=== PATIENT | female | born 1990 | race Caucasian/White ===

== ENCOUNTER 2018-05-28 08:27 | Inpatient (IN) | payer OTHER ==
[2018-05-28] MEDS ORDERED: Sodium Chloride 0.9% 10 ML Syringe FLUSH PRN (08:34)
[2018-05-28] MEDS ORDERED: Sodium Chloride 0.9% 2.5 ML Syringe FLUSH PRN (08:34)
[2018-05-28] MEDS ORDERED: Oxytocin/0.9 % Sodium Chloride 30 UNIT/500 ML BAG IV SCH (08:45)
[2018-05-28] MEDS ORDERED: Citric Acid/Sodium Citrate Solution 30 ML Cup PO SCH (08:45)
[2018-05-28] MEDS: Lactated Ringers 1,000 ML IV SCH ×2 (09:00→09:54)
--- NOTE | 2018-05-28 09:41 | PCM.PREANE ---
Preanesthetic Assessment - Anesthesia/Transfusion/Family Hx Anesthesia History: No Prior Anesthesia Family History of Anesthesia Reaction: No Transfusion History: No Prior Transfusion(s) - Review of Systems General: No Symptoms, Other (Pt fina q 3-5 min, but feeling no pain - baby breech) Pulmonary: No Symptoms Cardiovascular: No Symptoms Gastrointestinal: Diarrhea Neurological: No Symptoms Other: Reports: None - Physical Assessment NPO Status Date: 05/28/18 NPO Status Time: 00:00 Pulse: 83 Blood Pressure: 115/78 Height: 5 ft 6 in Weight: 193 lb ASA Class: 1 Mental Status: Alert & Oriented x3 Airway Class: Mallampati = 2 Dentition: Reports: Normal Dentition Thyro-Mental Finger Breadths: 3 Mouth Opening Finger Breadths: 3 ROM/Head Extension: Full Lungs: Clear to Auscultation, Normal Respiratory Effort Cardiovascular: Regular Rate, Regular Rhythm - Lab Values: Laboratory Last Values WBC 8.93 K/uL (4.0-11.0) 05/28/18 08:55 RBC 4.12 M/uL (4.30-5.90) L 05/28/18 08:55 Hgb 12.7 g/dL (12.0-16.0) 05/28/18 08:55 Hct 37.3 % (36.0-46.0) 05/28/18 08:55 MCV 90.5 fL (80.0-98.0) 05/28/18 08:55 MCH 30.8 pg (27.0-32.0) 05/28/18 08:55 MCHC 34.0 g/dL (31.0-37.0) 05/28/18 08:55 RDW Std Deviation 46.9 fl (28.0-62.0) 05/28/18 08:55 RDW Coeff of Alexandre 14 % (11.0-15.0) 05/28/18 08:55 Plt Count 134 K/uL (150-400) L 05/28/18 08:55 MPV 10.40 fL (7.40-12.00) 05/28/18 08:55 Nucleated RBC % 0.0 /100WBC 05/28/18 08:55 Nucleated RBCs # 0 K/uL 05/28/18 08:55 - Allergies Allergies/Adverse Reactions: Allergies Allergy/AdvReac Type Severity Reaction Status Date / Time No Known Allergies Allergy Verified 05/21/18 15:11 - Blood Blood Available: No Product(s) Available: None - Anesthesia Plan Free Text/Narrative:: SAB - Acknowledgements Anesthesia Type Planned: Spinal Pt an Appropriate Candidate for the Planned Anesthesia: Yes Alternatives and Risks of Anesthesia Discussed w Pt/Guardian: Yes Pt/Guardian Understands and Agrees with Anesthesia Plan: Yes PreAnesthesia Questionnaire HEENT History: Reports: Other (See Below) Other HEENT History: wears glasses/contacts [employer] REPA[employer]ER History: Reports: Endocrine/Metabolic History: Reports: Obesity/BMI 30+ - SUBSTANCE USE Smoking Status *Q: Never Smoker Recreational Drug Use History: No - HOME MEDS Home Medications: Home Meds Vit W-Ca,Fe,FA(<1 mg) [ Vitamins] 1 tab PO DAILY 05/21/18 [ History] - CURRENT (IN HOUSE) MEDS Current Meds: Current Medications Citric Acid/Sodium Citrate (Bicitra Solution) 30 ml PO .ONCE YIMI Cefazolin Sodium/Dextrose 2 gm (/ Premix) 50 mls @ 100 mls/hr IV ONETIME ONE Stop: 05/28/18 10:59 Lactated Ringer's (Ringers, Lactated) 1,000 mls @ 500 mls/hr IV .BOLUS YIMI Last Admin: 05/28/18 09:00 Dose: 500 mls/hr Oxytocin/Sodium Chloride (Oxytocin 30 Unit/500 Ml-Ns) 30 unit in 500 mls @ 250 mls/hr IV TITRATE YIMI Sodium Chloride (Saline Flush) 10 ml FLUSH ASDIRECTED PRN PRN Reason: Keep Vein Open Sodium Chloride (Saline Flush) 2.5 ml FLUSH ASDIRECTED PRN PRN Reason: Keep Vein Open
[2018-05-28] MEDS ORDERED: ceFAZolin 2 GM in Premix Bag 1 BAG IV ONE (10:30)
[2018-05-28] MEDS ORDERED: Morphine PF 1 MG/ML Amp ONE (10:41)
[2018-05-28] MEDS ORDERED: Ondansetron 4 MG/2 ML SDV ONE (10:41)
[2018-05-28] MEDS ORDERED: ceFAZolin 1 GM Vial ONE (10:41)
[2018-05-28] MEDS ORDERED: ePHEDrine 50 MG/ML SDV ONE (10:43)
[2018-05-28] MEDS ORDERED: Oxytocin/0.9 % Sodium Chloride 30 UNIT/500 ML BAG ONE (11:00)
[2018-05-28] MEDS ORDERED: Phenylephrine/Normal Saline 100 MCG/ML 10 ML Syringe ONE (11:40)
[2018-05-28] MEDS ORDERED: Ondansetron 4 MG/2 ML SDV IV PRN (12:53)
[2018-05-28] MEDS ORDERED: Bisacodyl 10 MG Supp RECTAL PRN (12:53)
[2018-05-28] MEDS ORDERED: Acetaminophen/oxyCODONE 325-5 MG Tab PO PRN ×2 (12:53→12:55)
[2018-05-28] MEDS ORDERED: diphenhydrAMINE 50 MG/ML SDV IVPUSH PRN ×2 (12:53→12:56)
[2018-05-28] MEDS ORDERED: Lanolin 100% Cream 7 GM Tube TOP PRN (12:53)
[2018-05-28] MEDS ORDERED: Naloxone 0.4 MG/ML Syringe IVPUSH PRN (12:56)
[2018-05-28] MEDS ORDERED: Nalbuphine 10 MG/ML 10 ML MDV IVPUSH PRN (12:56)
--- NOTE | 2018-05-28 12:59 | PCM.OPNOTE ---
- General Post-Op/Procedure Note Date of Surgery/Procedure: 05/28/18 Operative Procedure(s): Primary section Findings: Male infant in florentino breech presentation. Wt 3720grams, Apgars 9 and 9. Normal uterus, tubes and ovaries. Pre Op Diagnosis: IUP at 39 weeks. Malpresentation, Breech Post-Op Diagnosis: Same Anesthesia Technique: Spinal Primary Surgeon: Li Granados Fluid Replacement, Intraop: 2,000 Output, Urine Amount: 280 EBL in mLs: 700 Complications: None Condition: Good
[2018-05-28] MEDS ORDERED: Lactated Ringers 1,000 ML IV SCH (13:00)
[2018-05-28] MEDS: Ketorolac 30 MG/ML SDV IVPUSH SCH ×2 (13:08→18:33)
[2018-05-28] MEDS: Docusate Sodium 100 MG Cap PO SCH (21:27)
--- NOTE | 2018-05-28 23:22 | PCM48HPAN ---
Post Anesthesia Note - EVALUATION WITHIN 48HRS OF ANESTHETIC Vital Signs in Normal Range: Yes Patient Participated in Evaluation: Yes Respiratory Function Stable: Yes Airway Patent: Yes Cardiovascular Function Stable: Yes Hydration Status Stable: Yes Pain Control Satisfactory: Yes Nausea and Vomiting Control Satisfactory: Yes Mental Status Recovered: Yes Pulse Rate: 83 Resp Rate: 17 Blood Pressure: 115/78 - COMMENTS/OBSERVATIONS Free Text/Narrative:: Pt has been up walking earlier this evening. No apparent anesthesia complications.
[2018-05-29] MEDS: Ketorolac 30 MG/ML SDV IVPUSH SCH ×3 (00:47→12:37)
--- NOTE | 2018-05-29 08:18 | OR ---
SURGEON: Li Granados MD DATE OF PROCEDURE: 05/28/2018 PREOPERATIVE DIAGNOSES: 1. Term at 39 weeks gestation. 2. Breech presentation. POSTOPERATIVE DIAGNOSES: 1. Term at 39 weeks gestation. 2. Breech presentation. 3. Delivered. PROCEDURE: Primary low-transverse section via Pfannenstiel. ANESTHESIA: Spinal. ESTIMATED BLOOD LOSS: 700 mL. IV FLUIDS: 2000 mL of crystalloid. URINE OUTPUT: 280mls, clear at the end of the procedure. COMPLICATIONS: None. INDICATION: This 27-year-old primigravida at 39 weeks gestation, breech presentation at term. Unable to perform external cephalic version due to low amniotic fluid. care was otherwise uncomplicated. FINDINGS: Male in florentino breech presentation, scores 9 and 9 at 1 and 5 minutes respectively. Weight 3720 g. Clear scanty amount of amniotic fluid. Normal-appearing uterus, tubes, and ovaries. Grossly normal placenta with 3- vessel cord. PROCEDURE IN DETAIL: Patient was taken to the operating room where spinal was performed and was found to be adequate. She was then prepped and draped in normal sterile fashion in the dorsal supine position with a leftward tilt. SCDs were in place. 2 g of Ancef was given. Appropriate time-out was performed. A Pfannenstiel skin incision was then made with a scalpel and carried to the underlying fascia. The fascia was incised in the midline and the incision was extended laterally with the Bovie. Superior aspect of the fascial incision was then grasped with Mitesh clamps, elevated, and the underlying rectus muscles were dissected off with the Bovie. Attention was then turned to the inferior aspect of the incision, which in a similar fashion was tented up with Mitesh clamps and the underlying rectus muscle dissected off with the Bovie. The rectus muscle was then in the midline and the parietal peritoneum was identified and entered bluntly. This peritoneal defect was then extended laterally by stretching. The bladder blade was then inserted and the vesicouterine peritoneum was identified, grasped with pickups, and entered sharply with the Metzenbaum scissors. The incision was extended laterally and a bladder flap was created digitally. The bladder blade was then reinserted and the lower uterine segment was incised in a transverse fashion with the scalpel. The incision was extended upwards and downwards bluntly. The bladder blade was removed and the infant's buttocks was lifted out of the pelvis atraumatically and then the feet were then delivered followed by the rest of the baby using routine breech extraction maneuvers. The baby was vigorous and cried spontaneously at . The oropharynx and nostrils were bulb suctioned on the abdomen and the cord was double clamped and the infant was handed off to the waiting the nursery team. Cord blood and gas samples were obtained. The placenta was then removed manually. The uterus was exteriorized and cleared of all clots and debris. The hysterotomy site was repaired in 2 layers using 0 Vicryl suture. First layer was repaired in a running locked fashion and a 2nd imbricating layer was performed to obtain excellent hemostasis. Copious amount of irrigation was performed. The uterus was then returned into the abdominal cavity. The gutters were cleared of all clots and debris. The hysterotomy site was reexamined and found to have excellent hemostasis. The edges of the parietal peritoneum were then identified and this layer was closed with 2-0 Vicryl suture in a running fashion. The rectus muscle was reapproximated with the same suture using mattress stitches. The subfascial tissue was examined and found to be hemostatic. The fascia was reapproximated with 0 Vicryl in a running fashion. The subcutaneous tissue was then irrigated and made hemostatic with electrocautery. The skin was closed with subcuticular stitches using 4-0 Monocryl suture. The patient tolerated the procedure well. Sponge, lap, and needle counts were correct at the end of the procedure. The patient was taken to the recovery room in a stable condition and baby to the nursery in stable condition. JOI / UMU /[id number] SEBAS
--- NOTE | 2018-05-29 09:30 | PCM.PNPP ---
- General Info Date of Service: 05/29/18 Functional Status: Reports: Pain Controlled, Tolerating Diet, Ambulating, Urinating - Review of Systems General: Denies: Fever, Fatigue, Chills HEENT: Denies: Headaches Pulmonary: Denies: Shortness of Breath, Pleuritic Chest Pain Cardiovascular: Denies: Chest Pain, Palpitations, Dyspnea on Exertion Gastrointestinal: Denies: Abdominal Pain Genitourinary: Denies: Incontinence, Flank Pain - General Info Date of Service: 05/29/18 - Patient Data Vital Signs - Most Recent: Last Vital Signs Temp 36.2 C 05/29/18 04:00 Pulse 89 05/29/18 07:00 Resp 17 05/29/18 07:00 BP 116/71 05/29/18 04:00 Pulse Ox 98 05/29/18 07:00 Weight - Most Recent: 193 lb I&O - Last 24 Hours: Intake & Output 05/28/18 05/29/18 05/29/18 22:59 06:59 14:59 Output Total 1100 2200 Balance -1100 -2200 Lab Results - Last 24 Hours: Laboratory Results - last 24 hr 05/28/18 05/28/18 05/29/18 Range/Units 08:55 12:01 05:11 Hgb 10.0 L (12.0-16.0) g/dL Hct 29.9 L (36.0-46.0) % Cord ABG pH 7.292 (7.18-7.38) Cord ABG Base Excess -1 H (-10--2) Cord VBG pH 7.445 (7.25-7.45) Cord VBG Base Excess -2 (-10--2) Blood Type AB POSITIVE Antibody Screen NEGATIVE Med Orders - Current: Current Medications Bisacodyl (Dulcolax) 10 mg RECTAL .ONCE PRN PRN Reason: Constipation Diphenhydramine HCl (Benadryl) 25 mg IVPUSH Q6H PRN PRN Reason: Itching or Nausea Diphenhydramine HCl (Benadryl) 25 mg IVPUSH Q4H PRN PRN Reason: pruritis Stop: 05/29/18 12:56 Docusate Sodium (Colace) 100 mg PO BID YIMI Last Admin: 05/28/18 21:27 Dose: 100 mg Emollient Ointment (Lansinoh Hpa) 0 gm TOP ASDIRECTED PRN PRN Reason: Sore Nipples Lactated Ringer's (Ringers, Lactated) 1,000 mls @ 125 mls/hr IV ASDIRECTED YIMI Last Admin: 05/28/18 15:24 Dose: 125 mls/hr Ibuprofen (Motrin) 800 mg PO Q8H PRN PRN Reason: mild pain or fever Ketorolac Tromethamine (Toradol) 30 mg IVPUSH Q6H YIMI Stop: 05/29/18 13:01 Last Admin: 05/29/18 06:45 Dose: 30 mg Nalbuphine HCl (Nubain) 2.5 mg IVPUSH Q3H PRN PRN Reason: Pruritis Stop: 05/29/18 12:56 Naloxone HCl (Narcan) 0.1 mg IVPUSH ONETIME PRN PRN Reason: RR<6 WITH STIMULATION Stop: 05/29/18 12:57 Ondansetron HCl (Zofran) 4 mg IV Q4H PRN PRN Reason: Nausea/Vomiting Oxycodone/Acetaminophen (Percocet 325-5 Mg) 1 tab PO Q4H PRN PRN Reason: Pain (moderate 4-6) Oxycodone/Acetaminophen (Percocet 325-5 Mg) 2 tab PO Q4H PRN PRN Reason: Pain (moderate 4-6) Oxycodone/Acetaminophen (Percocet 325-5 Mg) 1 tab PO .Q4HRS PRN PRN Reason: Breakthrough Pain Stop: 05/29/18 12:55 Discontinued Medications Cefazolin Sodium (Ancef) Confirm Administered Dose 1 gm .ROUTE .STK-MED ONE Stop: 05/28/18 10:42 Citric Acid/Sodium Citrate (Bicitra Solution) 30 ml PO .ONCE YIMI Last Admin: 05/28/18 11:13 Dose: 30 ml Ephedrine Sulfate (Ephedrine Sulfate) Confirm Administered Dose 50 mg .ROUTE .STK-MED ONE Stop: 05/28/18 10:44 Cefazolin Sodium/Dextrose 2 gm (/ Premix) 50 mls @ 100 mls/hr IV ONETIME ONE Stop: 05/28/18 10:59 Last Admin: 05/28/18 23:11 Dose: Not Given Lactated Ringer's (Ringers, Lactated) 1,000 mls @ 500 mls/hr IV .BOLUS YIMI Last Admin: 05/28/18 09:54 Dose: 150 mls/hr Oxytocin/Sodium Chloride (Oxytocin 30 Unit/500 Ml-Ns) 30 unit in 500 mls @ 250 mls/hr IV TITRATE YIMI Cefazolin Sodium/Dextrose (Ancef) Confirm Administered Dose 50 mls @ as directed .ROUTE .STK-MED ONE Stop: 05/28/18 10:41 Oxytocin/Sodium Chloride (Oxytocin 30 Unit/500 Ml-Ns) Confirm Administered Dose 30 unit in 500 mls @ as directed .ROUTE .STK-MED ONE Stop: 05/28/18 11:01 Last Admin: 05/28/18 23:11 Dose: Not Given Acetaminophen (Ofirmev) Confirm Administered Dose 100 mls @ as directed IV .STK- MED ONE Stop: 05/28/18 12:24 Morphine Sulfate (Duramorph Pf) Confirm Administered Dose 1 mg .ROUTE .STK-MED ONE Stop: 05/28/18 10:42 Ondansetron HCl (Zofran) Confirm Administered Dose 4 mg .ROUTE .STK-MED ONE Stop: 05/28/18 10:42 Phenylephrine HCl (Phenylephrine In Ns 100 Mcg/Ml) Confirm Administered Dose 1 mg .ROUTE .STK-MED ONE Stop: 05/28/18 11:41 Sodium Chloride (Saline Flush) 10 ml FLUSH ASDIRECTED PRN PRN Reason: Keep Vein Open Sodium Chloride (Saline Flush) 2.5 ml FLUSH ASDIRECTED PRN PRN Reason: Keep Vein Open - Interaction Disposition, : in Room with Family Feeding: Breastfed Infant; Nursed Well, Continues to Breastfeed Support Person: - Recovery Exam Fundal Tone: Firm Fundal Level: 2 Fingerbreadths Below Umbilicus Fundal Placement: Midline Lochia Amount: Scant Lochia Color: Rubra/Red Perineum Description: Intact, Minimal Bruising/Swelling Episiotomy/Laceration: Approximated Bladder Status: Voiding Urinary Elimination: Voided - Exam General: Alert, Oriented Lungs: Clear to Auscultation, Normal Respiratory Effort Cardiovascular: Regular Rate, Regular Rhythm Extremities: Non-Tender, Pedal Edema Wound/Incisions: Healing Well Psy/Mental Status: Alert, Normal Affect, Normal Mood - Problem List & Annotations (1) delivery indicated due to breech presentation SNOMED Code(s): 330804105, 576209712 Code(s): O32.1XX0 - MATERNAL CARE FOR BREECH PRESENTATION, UNSP Status: Acute Current Visit: Yes - Problem List Review Problem List Initiated/Reviewed/Updated: Yes - My Orders Last 24 Hours: My Active Orders 05/28/18 08:34 Procedure Site Prep Instruct [RC] ASDIRECTED Up ad Dottie [RC] ASDIRECTED Verify Patient Consent Obtain [RC] ASDIRECTED Vital Signs [RC] PER UNIT ROUTINE 05/28/18 08:36 Notify Provider Vital Signs [RC] PRN 05/28/18 12:53 Patient Status [ADT] Routine Ambulate [RC] PER UNIT ROUTINE Communication Order [RC] PER UNIT ROUTINE May Shower [RC] ASDIRECTED RT Incentive Spirometry [RC] Q2HWA Acetaminophen/oxyCODONE [Percocet 325-5 MG] 1 tab PO Q4H PRN Acetaminophen/oxyCODONE [Percocet 325-5 MG] 2 tab PO Q4H PRN Bisacodyl [Dulcolax] 10 mg RECTAL .ONCE PRN Ibuprofen [Motrin] 800 mg PO Q8H PRN Lanolin [Lansinoh HPA] See Dose Instructions TOP ASDIRECTED PRN Ondansetron [Zofran] 4 mg IV Q4H PRN diphenhydrAMINE [Benadryl] 25 mg IVPUSH Q6H PRN Abdominal Binder [OM.PC] Routine Assess Lochia [WOMSER] Per Unit Routine Assess Uterine Involution [WOMSER] Per Unit Routine Breast Pump [WOMSER] Per Unit Routine Peripheral IV Discontinue [OM.PC] Routine Sequential Compression Device [OM.PC] Per Unit Routine Resuscitation Status Routine 05/28/18 12:54 Intake and Output [RC] Q4H Notify Provider Intake and Out [RC] ASDIRECTED Notify Provider Vital Signs [RC] ASDIRECTED 05/28/18 13:00 Ketorolac [Toradol] 30 mg IVPUSH Q6H Lactated Ringers [Ringers, Lactated] 1,000 ml IV ASDIRECTED 05/28/18 21:00 Docusate Sodium [Colace] 100 mg PO BID 05/28/18 Dinner Regular Diet [DIET] - Assessment Assessment:: POD#1 s/p Primary for breech presentation Doing well - Plan Plan:: Continue current care and aim for discharge tomorrow
[2018-05-29] MEDS: Docusate Sodium 100 MG Cap PO SCH ×2 (11:32→20:51)
[2018-05-29] MEDS: Acetaminophen/oxyCODONE 325-5 MG Tab PO PRN ×2 (17:04→20:52)
[2018-05-29] MEDS: Ibuprofen 800 MG Tab PO PRN (18:36)
[2018-05-30] MEDS: Acetaminophen/oxyCODONE 325-5 MG Tab PO PRN ×4 (01:46→13:39)
[2018-05-30] MEDS: Ibuprofen 800 MG Tab PO PRN ×2 (01:46→09:27)
--- NOTE | 2018-05-30 11:36 | PCM.PNPP ---
- General Info Date of Service: 05/30/18 Functional Status: Reports: Pain Controlled, Tolerating Diet, Ambulating, Urinating - Review of Systems General: Denies: Fever, Malaise, Chills HEENT: Denies: Headaches Pulmonary: Denies: Shortness of Breath, Pleuritic Chest Pain Cardiovascular: Denies: Chest Pain, Palpitations, Dyspnea on Exertion Genitourinary: Denies: Dysuria, Incontinence, Flank Pain Psychiatric: Denies: Depression, Mood Lability, Anxiety - General Info Date of Service: 05/30/18 - Patient Data Vital Signs - Most Recent: Last Vital Signs Temp 36.8 C 05/30/18 04:00 Pulse 88 05/30/18 04:00 Resp 16 05/30/18 04:00 BP 119/66 05/30/18 04:00 Pulse Ox 97 05/30/18 04:00 Weight - Most Recent: 193 lb Med Orders - Current: Current Medications Bisacodyl (Dulcolax) 10 mg RECTAL .ONCE PRN PRN Reason: Constipation Diphenhydramine HCl (Benadryl) 25 mg IVPUSH Q6H PRN PRN Reason: Itching or Nausea Docusate Sodium (Colace) 100 mg PO BID COUNTS INCLUDE 234 BEDS AT THE [facility] Last Admin: 05/29/18 20:51 Dose: 100 mg Emollient Ointment (Lansinoh Hpa) 0 gm TOP ASDIRECTED PRN PRN Reason: Sore Nipples Last Admin: 05/29/18 11:32 Dose: 1 tube Lactated Ringer's (Ringers, Lactated) 1,000 mls @ 125 mls/hr IV ASDIRECTED COUNTS INCLUDE 234 BEDS AT THE [facility] Last Admin: 05/28/18 15:24 Dose: 125 mls/hr Ibuprofen (Motrin) 800 mg PO Q8H PRN PRN Reason: mild pain or fever Last Admin: 05/30/18 09:27 Dose: 800 mg Ondansetron HCl (Zofran) 4 mg IV Q4H PRN PRN Reason: Nausea/Vomiting Oxycodone/Acetaminophen (Percocet 325-5 Mg) 1 tab PO Q4H PRN PRN Reason: Pain (moderate 4-6) Last Admin: 05/30/18 09:24 Dose: 1 tab Oxycodone/Acetaminophen (Percocet 325-5 Mg) 2 tab PO Q4H PRN PRN Reason: Pain (moderate 4-6) Discontinued Medications Cefazolin Sodium (Ancef) Confirm Administered Dose 1 gm .ROUTE .STK-MED ONE Stop: 05/28/18 10:42 Citric Acid/Sodium Citrate (Bicitra Solution) 30 ml PO .ONCE YIMI Last Admin: 05/28/18 11:13 Dose: 30 ml Diphenhydramine HCl (Benadryl) 25 mg IVPUSH Q4H PRN PRN Reason: pruritis Stop: 05/29/18 12:56 Ephedrine Sulfate (Ephedrine Sulfate) Confirm Administered Dose 50 mg .ROUTE .STK-MED ONE Stop: 05/28/18 10:44 Cefazolin Sodium/Dextrose 2 gm (/ Premix) 50 mls @ 100 mls/hr IV ONETIME ONE Stop: 05/28/18 10:59 Last Admin: 05/28/18 23:11 Dose: Not Given Lactated Ringer's (Ringers, Lactated) 1,000 mls @ 500 mls/hr IV .BOLUS COUNTS INCLUDE 234 BEDS AT THE [facility] Last Admin: 05/28/18 09:54 Dose: 150 mls/hr Oxytocin/Sodium Chloride (Oxytocin 30 Unit/500 Ml-Ns) 30 unit in 500 mls @ 250 mls/hr IV TITRATE YIMI Cefazolin Sodium/Dextrose (Ancef) Confirm Administered Dose 50 mls @ as directed .ROUTE .STK-MED ONE Stop: 05/28/18 10:41 Oxytocin/Sodium Chloride (Oxytocin 30 Unit/500 Ml-Ns) Confirm Administered Dose 30 unit in 500 mls @ as directed .ROUTE .STK-MED ONE Stop: 05/28/18 11:01 Last Admin: 05/28/18 23:11 Dose: Not Given Acetaminophen (Ofirmev) Confirm Administered Dose 100 mls @ as directed IV .STK- MED ONE Stop: 05/28/18 12:24 Ketorolac Tromethamine (Toradol) 30 mg IVPUSH Q6H YIMI Stop: 05/29/18 13:01 Last Admin: 05/29/18 12:37 Dose: 30 mg Morphine Sulfate (Duramorph Pf) Confirm Administered Dose 1 mg .ROUTE .STK-MED ONE Stop: 05/28/18 10:42 Nalbuphine HCl (Nubain) 2.5 mg IVPUSH Q3H PRN PRN Reason: Pruritis Stop: 05/29/18 12:56 Naloxone HCl (Narcan) 0.1 mg IVPUSH ONETIME PRN PRN Reason: RR<6 WITH STIMULATION Stop: 05/29/18 12:57 Ondansetron HCl (Zofran) Confirm Administered Dose 4 mg .ROUTE .STK-MED ONE Stop: 05/28/18 10:42 Oxycodone/Acetaminophen (Percocet 325-5 Mg) 1 tab PO .Q4HRS PRN PRN Reason: Breakthrough Pain Stop: 05/29/18 12:55 Phenylephrine HCl (Phenylephrine In Ns 100 Mcg/Ml) Confirm Administered Dose 1 mg .ROUTE .STK-MED ONE Stop: 05/28/18 11:41 Sodium Chloride (Saline Flush) 10 ml FLUSH ASDIRECTED PRN PRN Reason: Keep Vein Open Sodium Chloride (Saline Flush) 2.5 ml FLUSH ASDIRECTED PRN PRN Reason: Keep Vein Open - Interaction Disposition, : in Room with Family Infant Feeding: Breastfed Infant; Nursed Well, Continues to Breastfeed Support Person: - Recovery Exam Fundal Tone: Firm Fundal Level: 3 Fingerbreadths Below Umbilicus Fundal Placement: Midline Lochia Amount: Scant Lochia Color: Rubra/Red Perineum Description: Intact, Minimal Bruising/Swelling Episiotomy/Laceration: None Bladder Status: Voiding Urinary Elimination: Voided - Exam General: Alert, Oriented Lungs: Clear to Auscultation, Normal Respiratory Effort Cardiovascular: Regular Rate, Regular Rhythm Extremities: Non-Tender, Pedal Edema Wound/Incisions: Healing Well Psy/Mental Status: Alert, Normal Affect, Normal Mood - Problem List & Annotations (1) delivery indicated due to breech presentation SNOMED Code(s): 482694426, 429786799 Code(s): O32.1XX0 - MATERNAL CARE FOR BREECH PRESENTATION, UNSP Status: Acute Current Visit: Yes - Problem List Review Problem List Initiated/Reviewed/Updated: Yes - Assessment Assessment:: POD#2 s/p Primary for breech presentation Doing well and clinically stable for discharge - Plan Plan:: Discharge instructions reviewed Nothing in the vagina for 6 weeks Continue PNV and start daily Iron supplement Prescription for narcotics sent to the pharmacy Bleeding and infection precautions reviewed Care of her incision was reviewed blues vs depression S/S reviewed with patient Follow up in 2 and 6 weeks at [facility]
== END 2018-05-30 14:45 | disposition home or self-care (01) | DRG 766 ==
LOC: MW.OB 08:27
PROVIDERS: ADMIT Obstetrics & Gynecology; ATTEND Obstetrics & Gynecology
PROC: 10D00Z1 Extraction of Products of Conception, Low, Open Approach (ICD-10-PCS; principal; 2018-05-28)
DX: O32.1XX0 Maternal care for breech presentation, not applicable or unspecified (principal); Z3A.39 39 weeks gestation of pregnancy; Z37.0 Single live birth
CPT/HCPCS: 36415; 59025; 82803; 85014; 85018; 85027; 86850; 86900; 86901; A9270-GY; J0690; J1885; J2274; J2405; J7120

== ENCOUNTER 2020-11-17 17:18 | Inpatient (IN) | payer OTHER ==
[2020-11-17] MEDS ORDERED: Ampicillin 2 GM in Sodium Chloride 0.9% 100 ML IV ONE (17:38)
[2020-11-17] MEDS ORDERED: Nalbuphine 10 MG/1 ML Vial IVPUSH PRN (17:38)
[2020-11-17] MEDS ORDERED: Butorphanol 1 MG/ML SDV IVPUSH PRN (17:38)
[2020-11-17] MEDS ORDERED: Lidocaine 1% 50 ML MDV INJECT PRN (17:38)
[2020-11-17] MEDS ORDERED: Sodium Chloride 0.9% 10 ML Syringe FLUSH PRN (17:38)
[2020-11-17] MEDS ORDERED: Ondansetron 4 MG/2 ML SDV IVPUSH PRN (17:38)
[2020-11-17] MEDS ORDERED: Methylergonovine 0.2 MG/1 ML Amp IM PRN (17:38)
[2020-11-17] MEDS ORDERED: Tranexamic Acid 1,000 MG in Sodium Chloride 0.9% 100 ML IV PRN (17:38)
[2020-11-17] MEDS ORDERED: Sodium Chloride 0.9% 2.5 ML Syringe FLUSH PRN (17:38)
[2020-11-17] MEDS ORDERED: Carboprost Tromethamine 250 MCG/1 ML Amp IM PRN (17:38)
[2020-11-17] MEDS ORDERED: Misoprostol 200 MCG Tab PO PRN (17:38)
[2020-11-17] MEDS ORDERED: Water For Irrigation,Sterile 1,000 ML Container IRR PRN (17:38)
[2020-11-17] MEDS ORDERED: Sodium Chloride 0.9% 10 ML SDV IV PRN (17:38)
[2020-11-17] MEDS ORDERED: Lactated Ringers 1,000 ML IV SCH (17:45)
[2020-11-17] MEDS ORDERED: Oxytocin/0.9 % Sodium Chloride 30 UNIT/500 ML BAG IV SCH (17:45)
[2020-11-17] MEDS ORDERED: Ampicillin 1 GM in Sodium Chloride 0.9% 50 ML IV SCH (22:00)
[2020-11-17] MEDS ORDERED: Ampicillin 1 GM Vial ONE (22:13)
[2020-11-17] MEDS ORDERED: Sodium Chloride 0.9% 50 ML ONE (22:14)
[2020-11-18] MEDS ORDERED: Ampicillin 1 GM Vial ONE (02:13)
[2020-11-18] MEDS ORDERED: Bupivicaine/fentaNYL/NS 0 ML ONE (04:00)
[2020-11-18] MEDS ORDERED: Lidocaine 1% 50 ML MDV ONE (04:06)
--- NOTE | 2020-11-18 04:46 | PCM.PREANE ---
Preanesthetic Assessment - Anesthesia/Transfusion/Family Hx Anesthesia History: Prior Anesthesia Without Reaction Family History of Anesthesia Reaction: No Transfusion History: No Prior Transfusion(s) - Review of Systems General: No Symptoms Pulmonary: No Symptoms Cardiovascular: No Symptoms Gastrointestinal: No Symptoms Neurological: No Symptoms Other: Reports: None - Physical Assessment Height: 5 ft 6 in Weight: 92.533 kg ASA Class: 2 Mental Status: Alert & Oriented x3 Airway Class: Mallampati = 2 Dentition: Reports: Normal Dentition Thyro-Mental Finger Breadths: 3 Mouth Opening Finger Breadths: 3 ROM/Head Extension: Full Lungs: Clear to Auscultation, Normal Respiratory Effort Cardiovascular: Regular Rate, Regular Rhythm - Lab Values: Laboratory Last Values WBC 8.74 K/uL (4.0-11.0) 11/17/20 17:49 RBC 3.86 M/uL (4.30-5.90) L 11/17/20 17:49 Hgb 11.0 g/dL (12.0-16.0) L 11/17/20 17:49 Hct 34.6 % (36.0-46.0) L 11/17/20 17:49 MCV 89.6 fL (80.0-98.0) 11/17/20 17:49 MCH 28.5 pg (27.0-32.0) 11/17/20 17:49 MCHC 31.8 g/dL (31.0-37.0) 11/17/20 17:49 RDW Std Deviation 45.1 fl (28.0-62.0) 11/17/20 17:49 RDW Coeff of Alexandre 14 % (11.0-15.0) 11/17/20 17:49 Plt Count 152 K/uL (150-400) 11/17/20 17:49 MPV 10.20 fL (7.40-12.00) 11/17/20 17:49 Nucleated RBC % 0.0 /100WBC 11/17/20 17:49 Nucleated RBCs # 0 K/uL 11/17/20 17:49 Blood Type AB POSITIVE 11/17/20 17:49 Antibody Screen NEGATIVE 11/17/20 17:49 - Allergies Allergies/Adverse Reactions: Allergies Allergy/AdvReac Type Severity Reaction Status Date / Time nickel Allergy Rash Verified 11/17/20 17:53 - Acknowledgements Anesthesia Type Planned: Spinal, Epidural Pt an Appropriate Candidate for the Planned Anesthesia: Yes Alternatives and Risks of Anesthesia Discussed w Pt/Guardian: Yes Pt/Guardian Understands and Agrees with Anesthesia Plan: Yes PreAnesthesia Questionnaire - Past Health History Medical/Surgical History: Denies Medical/Surgical History HEENT History: Reports: Other (See Below) Other HEENT History: wears glasses/contacts Cardiovascular History: Reports: None Respiratory History: Reports: None Gastrointestinal History: Reports: None Genitourinary History: Reports: None FISHING VESSEL CAPTAIN History: Reports: : 2 Para: 1 LMP (Approximate): Musculoskeletal History: Reports: None Neurological History: Reports: None Psychiatric History: Reports: None Endocrine/Metabolic History: Reports: Obesity/BMI 30+ Hematologic History: Reports: None Immunologic History: Reports: None Oncologic (Cancer) History: Reports: None Dermatologic History: Reports: None - Infectious Disease History Infectious Disease History: Reports: Chicken Pox - Past Surgical History HEENT Surgical History: Reports: Oral Surgery Other HEENT Surgeries/Procedures: [place] teeth extraction. - SUBSTANCE USE Tobacco Use Status *Q: Never Tobacco User Second Hand Smoke Exposure: No Recreational Drug Use History: No - HOME MEDS Home Medications: Home Meds Vit Calc,Iron,Folic [ Vitamins] 1 tab PO DAILY 05/21/18 [History] Docusate Sodium [Colace] 100 mg PO BID PRN 05/28/18 [History] - CURRENT (IN HOUSE) MEDS Current Meds: Current Medications Butorphanol Tartrate (Stadol) 1 mg IVPUSH Q1H PRN PRN Reason: Pain Carboprost Tromethamine (Hemabate Ds) 250 mcg IM ASDIRECTED PRN PRN Reason: Post Hemorrhage Lactated Ringer's (Ringers, Lactated) 1,000 mls @ 150 mls/hr IV ASDIRECTED YIMI Last Admin: 11/17/20 18:01 Dose: 150 mls/hr Documented by: Oxytocin/Sodium Chloride (Oxytocin 30 Unit/500 Ml-Ns) 30 unit in 500 mls @ 999 mls/hr IV TITRATE YIMI Tranexamic Acid 1,000 mg/ (Sodium Chloride) 110 mls @ 660 mls/hr IV ONETIME PRN PRN Reason: Bleeding Ampicillin Sodium 1 gm/ Sodium (Chloride) 50 mls @ 100 mls/hr IV Q4H YIMI Last Admin: 11/17/20 23:15 Dose: 100 mls/hr Documented by: Lidocaine HCl (Xylocaine 1%) 50 ml INJECT ONETIME PRN PRN Reason: Laceration repair Methylergonovine Maleate (Methergine) 0.2 mg IM ASDIRECTED PRN PRN Reason: Post Hemorrhage Misoprostol (Cytotec) 200 mcg PO ONETIME PRN PRN Reason: Post Hemorrhage Nalbuphine HCl (Nubain) 10 mg IVPUSH Q1H PRN PRN Reason: Pain (severe 7-10) Ondansetron HCl (Zofran) 4 mg IVPUSH Q4H PRN PRN Reason: Nausea/Vomiting Sodium Chloride (Saline Flush) 10 ml FLUSH ASDIRECTED PRN PRN Reason: Keep Vein Open Sodium Chloride (Saline Flush) 2.5 ml FLUSH ASDIRECTED PRN PRN Reason: Keep Vein Open Sodium Chloride (Normal Saline) 10 ml IV ASDIRECTED PRN PRN Reason: IV Use Sterile Water (Sterile Water For Irrigation) 1,000 ml IRR ASDIRECTED PRN PRN Reason: delivery Discontinued Medications Ampicillin Sodium (Ampicillin) Confirm Administered Dose 1 gm .ROUTE .STK-MED ONE Stop: 11/17/20 22:14 Ampicillin Sodium (Ampicillin) Confirm Administered Dose 1 gm .ROUTE .STK-MED ONE Stop: 11/18/20 02:14 Ampicillin Sodium 2 gm/ Sodium (Chloride) 100 mls @ 200 mls/hr IV ONETIME ONE Stop: 11/17/20 18:07 Last Admin: 11/17/20 18:02 Dose: 200 mls/hr Documented by: Sodium Chloride (Normal Saline) Confirm Administered Dose 50 mls @ as directed .ROUTE .STK-MED ONE Stop: 11/17/20 22:15 Fentanyl/Bupivacaine HCl (Fentanyl/Bupivacaine/Ns 2 Mcg-0.125% 250 Ml) Confirm Administered Dose 250 mls @ as directed .ROUTE .STK-MED ONE Stop: 11/18/20 04:01 Lidocaine HCl (Xylocaine 1%) Confirm Administered Dose 50 ml .ROUTE .STK-MED ONE Stop: 11/18/20 04:07
--- NOTE | 2020-11-18 04:48 | PCM.SN.2 ---
- Free Text/Narrative Note: Called by nursing at 0342 for epidural placement. On my arrival the patient is 10cm, +2, and pushing. Pt is a ; will remain on the OB floor until delivery.
[2020-11-18] MEDS ORDERED: Lanolin 100% Cream 7 GM Tube TOP PRN (05:32)
[2020-11-18] MEDS ORDERED: oxyCODONE 5 MG Tab PO PRN (05:32)
[2020-11-18] MEDS ORDERED: Acetaminophen 500 MG Tab PO PRN (05:32)
[2020-11-18] MEDS ORDERED: Bisacodyl 10 MG Supp RECTAL PRN (05:32)
[2020-11-18] MEDS ORDERED: Ibuprofen 400 MG Tab PO PRN (05:32)
[2020-11-18] MEDS ORDERED: Witch Hazel Medicated Pads 40/Jar TOP PRN (05:32)
[2020-11-18] MEDS ORDERED: Benzocaine/Menthol 20%-0.5% Spray 78 GM Cannister TOP PRN (05:32)
--- NOTE | 2020-11-18 05:44 | PCM.OPNOTE ---
- General Post-Op/Procedure Note Date of Surgery/Procedure: 11/18/20 Operative Procedure(s): /2nd MLL repaired Findings: Viable female APGARs 8, 9 weight pending. Spontaneous delivery intact placenta with 3V cord. Pre Op Diagnosis: 37/3 week IUP. Oligohydramnios. GBBS+. Previous LTCS, desires TOLAC Post-Op Diagnosis: Same Anesthesia Technique: Local, Other (see below) (pudendal) Primary Surgeon: Louise Valdez EBL in mLs: 400 Complications: none known Condition: Good Free Text/Narrative:: Dictation [id number]
[2020-11-18] MEDS: Ibuprofen 800 MG Tab PO PRN ×3 (06:30→18:32)
[2020-11-18] MEDS: Acetaminophen 500 MG Tab PO PRN ×4 (06:31→22:06)
--- NOTE | 2020-11-18 09:08 | OR ---
SURGEON: Louise Valdez M.D. DATE OF PROCEDURE: 11/18/2020 PREOPERATIVE DIAGNOSES: 1. 37-3/7 weeks' intrauterine . 2. Oligohydramnios. 3. Group B Streptococcus positive. 4. Previous LTCS, desires . POSTOPERATIVE DIAGNOSES: 1. 37-3/7 weeks' intrauterine . 2. Oligohydramnios. 3. Group B Streptococcus positive. 4. Previous LTCS, desires . PROCEDURE: Vaginal after with second-degree midline laceration, repaired. ANESTHESIA: Pudendal with local. ESTIMATED BLOOD LOSS: 400 mL. COMPLICATIONS: None known. FINDINGS: Viable female, score 8 at 1 minute, 9 at 5 minutes. Weight is pending. Spontaneous delivery, intact placenta, 3-vessel cord. DISPOSITION: to nursery, Mom in LDRP. PROCEDURE DETAILS: Uyen is a 29-year-old, G2, P1, at 37-3/7 weeks' gestational age who came in today for her routine OB care. She has a history of a term oligohydramnios with her last and she has had COVID during this , so we have initiated surveillance. On her biophysical today, it was noted that she had an LEA of only 3 cm, which was distinct change from last week's ultrasound, which revealed LEA of 12 cm. Therefore, given this finding and term gestation, I have advised proceeding with delivery. The patient has had a previous LTCS for breech and would like to have a trial of labor after . Proper consents have been obtained. Upon exam, the patient is found to be 3 cm, 70% effaced, -2 station. Therefore, she is admitted, routine labs were drawn. She is initiated on ampicillin prophylaxis for group B Strep positive status. After receiving 2 doses of ampicillin and with a reactive NST, category 1 heart tones, amniotomy was performed. A small amount of clear fluid was returned. The patient was then initiated on nipple stimulation and began having regular contractions. She progressed to an active labor pattern and in the area loss prevention manager hours quickly progressed from 4 cm to 10 cm dilatation, feeling the urge to push. At approximately 4 a.m., I was called for delivery. Upon arrival, the patient had received a pudendal block by Dr. Ramos who was on the unit. The patient began pushing efforts after being placed in a modified dorsal lithotomy position, prepped and draped in the usual aseptic manner. The patient began pushing efforts adequately, was able to deliver the to a +4 station followed by delivery of the head spontaneously atraumatically, followed by anterior shoulder, posterior shoulder, and remainder of the body without difficulty. The 's oropharynx and nares were bulb suctioned. was handed off to her mother with attending nursing staff at the side. After a delay, the cord was clamped x2 and cut. Cord arterial, cord venous blood sampling was obtained. Light pressure was applied while the placenta was delivered spontaneously intact. Vigorous fundal uterine massage was then applied while 30 units of Pitocin was delivered in 500 mL of IV fluid. Upon inspection of cervix, vaginal sidewall, and perineum, there was found to be a deeper second-degree midline laceration present. This region was then prepped with approximately 8 mL 1% lidocaine. The deeper subcutaneous tissue was now reapproximated with 3 [id number] sutures and then the remainder of the laceration was repaired in the usual second-degree fashion using 3-0 Vicryl. The patient tolerated the repair well overall. Hemostasis appeared evident. Uterus remained firm. Sponge, instrument, and needle count was correct. The patient will remain in LDRP, to nursery. POLY / UMU /[id number]
[2020-11-18] MEDS: Docusate Sodium 100 MG Cap PO PRN (12:46)
[2020-11-19] MEDS: Ibuprofen 800 MG Tab PO PRN ×2 (00:14→08:12)
[2020-11-19] MEDS: Acetaminophen 500 MG Tab PO PRN (05:21)
--- NOTE | 2020-11-19 07:19 | PCM48HPAN ---
Post Anesthesia Note - EVALUATION WITHIN 48HRS OF ANESTHETIC Vital Signs in Normal Range: Yes Patient Participated in Evaluation: Yes Respiratory Function Stable: Yes Airway Patent: Yes Cardiovascular Function Stable: Yes Hydration Status Stable: Yes Pain Control Satisfactory: Yes Nausea and Vomiting Control Satisfactory: Yes Mental Status Recovered: Yes Vital Signs: Last Vital Signs Temp 36.1 C 11/19/20 05:04 Pulse 65 11/19/20 05:04 Resp 16 11/19/20 05:04 BP 113/61 11/19/20 05:04 Pulse Ox 97 11/19/20 05:04
[2020-11-19] MEDS: Docusate Sodium 100 MG Cap PO PRN (08:12)
--- NOTE | 2020-11-19 10:55 | PCM.PNPP ---
- General Info Date of Service: 11/19/20 Functional Status: Reports: Pain Controlled, Tolerating Diet, Ambulating, Urinating - Review of Systems General: Reports: No Symptoms HEENT: Reports: No Symptoms Pulmonary: Reports: No Symptoms Cardiovascular: Reports: No Symptoms Gastrointestinal: Reports: No Symptoms Genitourinary: Reports: No Symptoms Musculoskeletal: Reports: No Symptoms Skin: Reports: No Symptoms Neurological: Reports: No Symptoms Psychiatric: Reports: No Symptoms - General Info Date of Service: 11/19/20 - Patient Data Vital Signs - Most Recent: Last Vital Signs Temp 36.1 C 11/19/20 08:10 Pulse 81 11/19/20 08:10 Resp 16 11/19/20 08:10 BP 123/75 11/19/20 08:10 Pulse Ox 98 11/19/20 08:10 Weight - Most Recent: 92.533 kg Lab Results - Last 24 Hours: Laboratory Results - last 24 hr 11/19/20 Range/Units 04:50 Hgb 10.1 L (12.0-16.0) g/dL Hct 31.3 L (36.0-46.0) % Med Orders - Current: Current Medications Acetaminophen (Tylenol Extra Strength) 500 mg PO Q4H PRN PRN Reason: Pain Acetaminophen (Tylenol Extra Strength) 1,000 mg PO Q4H PRN PRN Reason: Pain Last Admin: 11/19/20 05:21 Dose: 1,000 mg Documented by: Benzocaine/Menthol (Dermoplast Pain Relief 20%-0.5% [place]) 78 gm TOP ASDIRECTED PRN PRN Reason: Perineal Comfort Measure Last Admin: 11/18/20 07:33 Dose: 78 gm Documented by: Bisacodyl (Dulcolax) 10 mg RECTAL ONETIME PRN PRN Reason: Constipation Butorphanol Tartrate (Stadol) 1 mg IVPUSH Q1H PRN PRN Reason: Pain Carboprost Tromethamine (Hemabate Ds) 250 mcg IM ASDIRECTED PRN PRN Reason: Post Hemorrhage Docusate Sodium (Colace) 100 mg PO BID PRN PRN Reason: Constipation Last Admin: 11/19/20 08:12 Dose: 100 mg Documented by: Emollient Ointment (Lansinoh Hpa) 0 gm TOP ASDIRECTED PRN PRN Reason: Sore Nipples Lactated Ringer's (Ringers, Lactated) 1,000 mls @ 150 mls/hr IV ASDIRECTED YIMI Last Admin: 11/17/20 18:01 Dose: 150 mls/hr Documented by: Oxytocin/Sodium Chloride (Oxytocin 30 Unit/500 Ml-Ns) 30 unit in 500 mls @ 999 mls/hr IV TITRATE [facility] Tranexamic Acid 1,000 mg/ (Sodium Chloride) 110 mls @ 660 mls/hr IV ONETIME PRN PRN Reason: Bleeding Ibuprofen (Motrin) 400 mg PO Q4H PRN PRN Reason: Pain Ibuprofen (Motrin) 800 mg PO Q6H PRN PRN Reason: Pain Last Admin: 11/19/20 08:12 Dose: 800 mg Documented by: Lidocaine HCl (Xylocaine 1%) 50 ml INJECT ONETIME PRN PRN Reason: Laceration repair Methylergonovine Maleate (Methergine) 0.2 mg IM ASDIRECTED PRN PRN Reason: Post Hemorrhage Misoprostol (Cytotec) 200 mcg PO ONETIME PRN PRN Reason: Post Hemorrhage Nalbuphine HCl (Nubain) 10 mg IVPUSH Q1H PRN PRN Reason: Pain (severe 7-10) Ondansetron HCl (Zofran) 4 mg IVPUSH Q4H PRN PRN Reason: Nausea/Vomiting Oxycodone HCl (Oxycodone) 5 mg PO Q2H PRN PRN Reason: Pain Sodium Chloride (Saline Flush) 10 ml FLUSH ASDIRECTED PRN PRN Reason: Keep Vein Open Sodium Chloride (Saline Flush) 2.5 ml FLUSH ASDIRECTED PRN PRN Reason: Keep Vein Open Sodium Chloride (Normal Saline) 10 ml IV ASDIRECTED PRN PRN Reason: IV Use Sterile Water (Sterile Water For Irrigation) 1,000 ml IRR ASDIRECTED PRN PRN Reason: delivery Witch Yenifer (Tucks) 1 pad TOP ASDIRECTED PRN PRN Reason: comfort care Last Admin: 11/18/20 07:32 Dose: 1 pad Documented by: Discontinued Medications Ampicillin Sodium (Ampicillin) Confirm Administered Dose 1 gm .ROUTE .STK-MED ONE Stop: 11/17/20 22:14 Ampicillin Sodium (Ampicillin) Confirm Administered Dose 1 gm .ROUTE .STK-MED ONE Stop: 11/18/20 02:14 Ampicillin Sodium 2 gm/ Sodium (Chloride) 100 mls @ 200 mls/hr IV ONETIME ONE Stop: 11/17/20 18:07 Last Admin: 11/17/20 18:02 Dose: 200 mls/hr Documented by: Ampicillin Sodium 1 gm/ Sodium (Chloride) 50 mls @ 100 mls/hr IV Q4H YIMI Last Admin: 11/17/20 23:15 Dose: 100 mls/hr Documented by: Sodium Chloride (Normal Saline) Confirm Administered Dose 50 mls @ as directed .ROUTE .STK-MED ONE Stop: 11/17/20 22:15 Fentanyl/Bupivacaine HCl (Fentanyl/Bupivacaine/Ns 2 Mcg-0.125% 250 Ml) Confirm Administered Dose 250 mls @ as directed .ROUTE .STK-MED ONE Stop: 11/18/20 04:01 Lidocaine HCl (Xylocaine 1%) Confirm Administered Dose 50 ml .ROUTE .STK-MED ONE Stop: 11/18/20 04:07 - Infant Interaction Infant Disposition, : in Room with Family Infant Interaction: Holding Infant Feeding: Breastfed ; Nursed Well Support Person: - Recovery Exam Fundal Tone: Firm Fundal Level: 2 Fingerbreadths Below Umbilicus Fundal Placement: Midline Lochia Amount: Small Lochia Color: Rubra/Red Perineum Description: Intact, Minimal Bruising/Swelling, Other (see below) Other Perinuem Description: 2nd degree midline laceration Episiotomy/Laceration: Approximated Bladder Status: Voiding Urinary Elimination: Voided - Exam General: Alert, Oriented HEENT: Pupils Equal Neck: Supple Lungs: Normal Respiratory Effort Cardiovascular: Murmurs GI/Abdominal Exam: Soft, No Distention Extremities: Normal Inspection, Normal Range of Motion, Non-Tender, No Pedal Edema Skin: Warm, Dry, Intact Neurological: No New Focal Deficit Psy/Mental Status: Alert, Normal Affect, Normal Mood - Problem List & Annotations (1) Vaginal after SNOMED Code(s): 945090389 Code(s): O34.219 - MATERNAL CARE FOR UNSP TYPE SCAR FROM PREVIOUS DEL Status: Acute Current Visit: Yes - Problem List Review Problem List Initiated/Reviewed/Updated: Yes - Assessment Assessment:: PPD# 1 after successful , stable minimal lochia. Denies pain, is going well. - Plan Plan:: Discharge to home today, discharge instructions reviewed.
== END 2020-11-19 12:00 | disposition home or self-care (01) | DRG 806 ==
LOC: MW.OBCHECK 17:18 → MW.OB 17:18 → MW.OBCHECK 17:38 → MW.OB 17:38 → OBSVTOIN 11-18 04:50 → MW.OB 11-18 09:08
PROVIDERS: ADMIT Obstetrics & Gynecology; ATTEND Obstetrics & Gynecology
PROC: 10E0XZZ Delivery of Products of Conception, External Approach (ICD-10-PCS; principal; 2020-11-18)
PROC: 0KQM0ZZ Repair Perineum Muscle, Open Approach (ICD-10-PCS; 2020-11-18)
PROC: 10907ZC Drainage of Amniotic Fluid, Therapeutic from Products of Conception, Via Natural or Artificial Opening (ICD-10-PCS; 2020-11-18)
DX: O34.211 Maternal care for low transverse scar from previous cesarean delivery (principal); O41.03X0 Oligohydramnios, third trimester, not applicable or unspecified; Z37.0 Single live birth; Z3A.37 37 weeks gestation of pregnancy; O99.824 Streptococcus B carrier state complicating childbirth; O70.1 Second degree perineal laceration during delivery
CPT/HCPCS: 36415; 59025; 59409; 85014; 85018; 85027; 86592; 86850; 86900; 86901; A9270-GY; J0290; J7050; J7120

== ENCOUNTER 2024-04-27 06:57 | Inpatient (IN) | payer OTHER ==
[2024-04-27] MEDS ORDERED: Oxytocin/0.9 % Sodium Chloride 30 UNIT/500 ML BAG IV SCH (07:10)
[2024-04-27] MEDS: Lidocaine 1% 50 ML MDV INJECT ONE ×2 (07:15→16:40)
[2024-04-27] MEDS ORDERED: Methylergonovine 0.2 MG Tab PO PRN (07:28)
[2024-04-27] MEDS ORDERED: Carboprost Tromethamine 250 MCG/1 mL Vial IM PRN (07:28)
[2024-04-27] MEDS ORDERED: Sodium Chloride 0.9% 10 ML Syringe FLUSH PRN (07:28)
[2024-04-27] MEDS ORDERED: Tranexamic Acid IN NACL,ISO-OS 1,000 MG in Premix Bag 1 BAG IV PRN (07:28)
[2024-04-27] MEDS ORDERED: Sodium Chloride 0.9% 2.5 ML Syringe FLUSH PRN (07:28)
[2024-04-27] MEDS ORDERED: oxyCODONE 5 MG Tab PO PRN (07:28)
[2024-04-27] MEDS ORDERED: Sodium Chloride 0.9% 20 ML SDV IV PRN (07:28)
[2024-04-27] MEDS: Lanolin 100% Cream 7 GM Tube TOP PRN (07:41)
[2024-04-27] MEDS: Witch Hazel Medicated Pads 40/Jar TOP PRN (07:41)
[2024-04-27] MEDS: Benzocaine/Menthol 20%-0.5% Spray 78 GM Cannister TOP PRN (07:42)
[2024-04-27] MEDS: Acetaminophen 500 MG Tab PO PRN (07:43)
[2024-04-27] MEDS: Ibuprofen 800 MG Tab PO PRN (07:43)
[2024-04-27] MEDS: Oxytocin/0.9 % Sodium Chloride 30 UNIT/500 ML BAG ONE (07:48)
[2024-04-27] MEDS: Lactated Ringers 1,000 ML IV SCH (07:48)
[2024-04-27] MEDS: Water For Irrigation,Sterile 1,000 ML Container IRR SCH (08:36)
[2024-04-27] MEDS: Lidocaine 1% 20 ML MDV ONE (16:40)
[2024-04-27 16:41] LABS: HEMATOCRIT 33.8 % (37.0-47.0); HEMOGLOBIN 11.1 g/dL (12.0-16.0); MEAN CORPUSCULAR HEMOGLOBIN 27.6 pg (28.0-32.0); MEAN CORPUSCULAR HGB CONC 32.8 g/dL (32.0-36.0); MEAN CORPUSCULAR VOLUME 84.1 fL (83.0-99.0); MEAN PLATELET VOLUME 10.6 fL (9.4-12.3); PLATELET COUNT,PLT 138 K/uL (150-400); RED BLOOD CELL COUNT 4.02 M/uL (4.10-5.30); WHITE BLOOD CELL COUNT,WBC 7.48 K/uL (3.9-11.3)
[2024-04-27] MEDS: Docusate Sodium 100 MG Cap PO PRN (19:56)
[2024-04-28 05:44] LABS: HEMATOCRIT 30.5 % (37.0-47.0); HEMOGLOBIN 9.5 g/dL (12.0-16.0)
== END 2024-04-28 12:45 | disposition home or self-care (01) | DRG 807 ==
LOC: MW.OBCHECK 06:57 → MW.OB 06:58 → MW.OBCHECK 07:22 → OBSVTOIN 07:28 → MW.OB 11:01
PROVIDERS: ADMIT Obstetrics & Gynecology; ATTEND Obstetrics & Gynecology
PROC: 10E0XZZ Delivery of Products of Conception, External Approach (ICD-10-PCS; principal; 2024-04-27)
PROC: 0HQ9XZZ Repair Perineum Skin, External Approach (ICD-10-PCS; 2024-04-27)
DX: O34.211 Maternal care for low transverse scar from previous cesarean delivery (principal); Z3A.38 38 weeks gestation of pregnancy; Z37.0 Single live birth; O70.0 First degree perineal laceration during delivery
CPT/HCPCS: 36415; 59300; 59409; 85014; 85018; 85027; 86592; 86850; 86900; 86901; A9270-GY; J2001; J2590; J3490; J7120